=== PATIENT | male | born 1940 | race Caucasian/White ===

== ENCOUNTER 2017-10-02 08:37 | Day surgery (SDC) | payer MEDICARE ==
[2017-10-01 09:30] VITALS: BMI 29.0
[~2017-10-02 08:37] MED LIST: ALPRAZolam 0.25 MG TAB PO PRN; ALPRAZolam 0.5 MG TAB PO PRN; ASPIRIN 325 MG TAB PO STA; NITROGLYCERIN SL TABS 0.4 MG TAB SUBLINGUAL PRN; SODIUM CHLORIDE 0.9% 1,000 ML in EMPTY BAG 1 BAG IV ONE
[2017-10-02 09:52] LABS: Glucose,Whole Blood 140 mg/dL (75-99)
[2017-10-02 09:54] LABS: Basophils % (A) 0 %; Eosinophils # (A) 0.7 k/uL (0-0.7); Eosinophils % (A) 8 %; HCT 42.5 % (39.0-53.0); HGB 14.6 gm/dL (13.0-17.5); Lymphocytes % (A) 22 %; MCH 29.8 pg (25.0-35.0); MCHC 34.4 g/dL (31.0-37.0); MCV 86.8 fL (80.0-100.0); Mean Platelet Volume 7.9; Monocytes # (A) 0.6 k/uL (0-1.0); Monocytes % (A) 7 %; Neutrophils # (A) 5.4 k/uL (1.3-7.7); Neutrophils % (A) 60 %; Platelet Count 246 k/uL (150-450); RBC 4.89 m/uL (4.30-5.90); RDW 13.9 % (11.5-15.5); WBC 8.9 k/uL (3.8-10.6)
[2017-10-02 10:03] LABS: Calcium 9.4 mg/dL (8.4-10.2); Potassium 4.7 mmol/L (3.5-5.1)
[2017-10-02] MEDS: MIDAZOLAM 2 MG/2 ML VIAL IV ONE ×2 (10:21→10:30)
[2017-10-02] MEDS: fentaNYL (PF) 50 MCG/ML 2 ML AMP IV ONE ×2 (10:21→12:53)
[2017-10-02] MEDS ORDERED: LIDOCAINE 2% INJ 20 MG/ML SQ ONE ×2 (10:26→11:26)
--- NOTE | 2017-10-02 11:25 | CC ---
CARDIAC CATHETERIZATION REPORT Mr. Almanzar is a 77-year-old gentleman who was seen in the office for preop evaluation. Patient is status post coronary artery bypass surgery with the RENTERIA graft to the LAD. Patient had a lateral wall ischemia. In view of the moderate to large area of lateral wall ischemia, in view of that, the patient was recommended to have a cardiac catheterization for definitive diagnosis. PROCEDURE: The right groin was prepped and draped in the usual manner and the skin was infiltrated with 2% Xylocaine. Right femoral artery was entered using Seldinger technique. A #6- Wallisian sheath was placed in. Selective coronary angiography was then performed in multiple projections and the RENTERIA graft to the LAD was injected. Patient tolerated the procedure well. HEMODYNAMICS: Left ventricular end-diastolic pressure is 14 to 16 mmHg prior to angiography. No gradient was noted across the aortic valve. SELECTIVE CORONARY ANGIOGRAPHY: Left main coronary artery is normally patent. LAD is occluded after the origin of the diagonal branch. The ostium of the diagonal branch is about 30%-40% stenosis. Circumflex coronary artery is a good caliber blood vessel and there is a mild ostial stenosis noted. The intermediate branch which is a good caliber blood vessel has a 99% stenosis through the calcified vessel. The right coronary artery is also calcified and has a 99% stenosis in the mid RCA. RENTERIA graft to the LAD is patent. FINAL IMPRESSION: 1. Left anterior descending artery is 100% occlusion that is a 30%-40% stenosis. Ostial stenosis of the diagonal branch. The intermediate branch has a 99% stenosis. 2. Right coronary artery has a 99% stenosis. Circumflex coronary artery has mild ostial stenosis. RECOMMENDATIONS: Films were reviewed with Dr. Jordan. Will proceed with a stent to the RCA and intermediate branch. MMODL / IJN: [id number] /
[2017-10-02] MEDS ORDERED: BIVALIRUDIN BOLUS 250 MG/50 ML IV ONE (11:33)
[2017-10-02] MEDS ORDERED: BIVALIRUDIN 250 MG in SODIUM CHLORIDE 0.9% 40 ML IV ONE ×2 (11:34→12:07)
[2017-10-02] MEDS ORDERED: IOPAMIDOL-370 125ML BTL INJ ONE (11:37)
[2017-10-02] MEDS ORDERED: MIDAZOLAM 2 MG/2 ML VIAL IV ONE (11:37)
[2017-10-02] MEDS ORDERED: IOPAMIDOL-370 100ML BTL INJ ONE (12:42)
[2017-10-02] MEDS ORDERED: TICAGRELOR 90 MG TAB PO ONE (12:42)
[2017-10-02] MEDS ORDERED: guaiFENesin 600 MG TABLET.ER PO PRN (12:49)
[2017-10-02] MEDS ORDERED: ATROPINE SULFATE 0.1 MG/ML 10ML SYRINGE IV PRN (12:50)
[2017-10-02] MEDS ORDERED: NITROGLYCERIN SL TABS 0.4 MG TAB SUBLINGUAL PRN (12:50)
[2017-10-02] MEDS ORDERED: ZOLPIDEM 5 MG TAB PO PRN (12:50)
[2017-10-02] MEDS ORDERED: RX INFO: IV CONTRAST WAS GIVEN 1 EACH MISC MISCELLANE PRN (12:50)
[2017-10-02] MEDS ORDERED: MAG HYDROX/AL HYDROX/SIMETH 30 ML CUP PO PRN (12:50)
[2017-10-02] MEDS ORDERED: SODIUM CHLORIDE 0.9% 1,000 ML IV SCH (13:00)
[2017-10-02 17:05] LABS: Glucose,Whole Blood 100 mg/dL (75-99)
[2017-10-02] MEDS: INSULIN ASPART 100 UNIT/ML 1 ML 10 ML VIAL SQ SCH ×2 (17:28→21:42)
[2017-10-02] MEDS ORDERED: ATORVASTATIN 40 MG TAB PO SCH (21:00)
[2017-10-02] MEDS ORDERED: NON-FORMULARY DRUG (Glucosamine Sulfate 500 MG) PO SCH (21:00)
[2017-10-02] MEDS: INSULIN DETEMIR 100 UNIT/ML 10 ML VIAL SQ SCH (21:42)
[2017-10-02] MEDS: TICAGRELOR 90 MG TAB PO SCH (21:47)
[2017-10-02] MEDS: LISINOPRIL 20 MG TAB PO SCH (21:47)
[2017-10-02] MEDS: METOPROLOL TARTRATE 50 MG TAB PO SCH (21:48)
[2017-10-02] MEDS: FAMOTIDINE 20 MG TAB PO SCH (21:48)
[2017-10-03 01:01] VITALS: RESP 18
[2017-10-03 02:07] LABS: Hemoglobin A1C 6.7 % (4.0-6.0)
[2017-10-03 06:26] LABS: Glucose,Whole Blood 110 mg/dL (75-99)
[2017-10-03 06:52] LABS: Basophils % (A) 0 %; Eosinophils # (A) 1.1 k/uL (0-0.7); Eosinophils % (A) 13 %; HCT 38.2 % (39.0-53.0); HGB 12.7 gm/dL (13.0-17.5); Lymphocytes % (A) 24 %; MCH 29.1 pg (25.0-35.0); MCHC 33.2 g/dL (31.0-37.0); MCV 87.5 fL (80.0-100.0); Mean Platelet Volume 7.6; Monocytes # (A) 0.7 k/uL (0-1.0); Monocytes % (A) 9 %; Neutrophils # (A) 4.4 k/uL (1.3-7.7); Neutrophils % (A) 51 %; Platelet Count 209 k/uL (150-450); RBC 4.36 m/uL (4.30-5.90); RDW 13.9 % (11.5-15.5); WBC 8.5 k/uL (3.8-10.6)
[2017-10-03 07:09] LABS: Calcium 9.1 mg/dL (8.4-10.2); Potassium 4.2 mmol/L (3.5-5.1)
[2017-10-03 08:55] VITALS: PULSE 55
[2017-10-03] MEDS ORDERED: CHLORTHALIDONE 25 MG TAB PO SCH (09:00)
[2017-10-03] MEDS ORDERED: FERROUS SULFATE 325 MG TAB PO SCH (09:00)
[2017-10-03] MEDS ORDERED: ASPIRIN 81 MG PO SCH (09:00)
[2017-10-03] MEDS ORDERED: amLODIPine 5 MG TAB PO SCH (09:00)
[2017-10-03] MEDS: INSULIN ASPART 100 UNIT/ML 1 ML 10 ML VIAL SQ SCH ×2 (09:07→12:15)
[2017-10-03] MEDS: INSULIN DETEMIR 100 UNIT/ML 10 ML VIAL SQ SCH (09:07)
[2017-10-03] MEDS: TICAGRELOR 90 MG TAB PO SCH (09:08)
[2017-10-03] MEDS: LISINOPRIL 20 MG TAB PO SCH (09:08)
[2017-10-03] MEDS: METOPROLOL TARTRATE 50 MG TAB PO SCH (09:09)
[2017-10-03] MEDS: FAMOTIDINE 20 MG TAB PO SCH (09:09)
[2017-10-03 11:02] LABS: Glucose,Whole Blood 225 mg/dL (75-99)
[2017-10-03 11:25] LABS: Glucose,Whole Blood 199 mg/dL (75-99)
[2017-10-03 11:58] VITALS: BP 136/68; TEMP 99.3
[2017-10-03] MEDS ORDERED: CHOLECALCIFEROL 1,000 UNIT TAB PO SCH (12:00)
[2017-10-03] MEDS ORDERED: EZETIMIBE 10 MG TAB PO SCH (12:00)
--- NOTE | 2017-10-03 12:49 | DS ---
DISCHARGE SUMMARY This patient underwent cardiac catheterization yesterday. Patient was found to have 99% stenosis of the right coronary artery and 90% stenosis of the intermediate branch. Patient's blood vessels were calcified. Patient underwent orbital atherectomy and stent placement in the right coronary artery. The right groin is normal. He is feeling well. We have increased the dose of Lipitor to 80 mg daily and Zetia 10 mg daily is added. Patient will be brought back for the stent to the ramus intermediate branch in couple of weeks and we will continue the patient on Brilinta and baby aspirin. MMODL / IJN: [id number] /
[2017-10-03] MEDS ORDERED: ATORVASTATIN 80 MG TAB PO SCH (21:00)
--- NOTE | 2017-11-21 10:40 | PTCA ---
PERCUTANEOUSTRANS CORORONARY ANGIOGRAPHY DATE OF SERVICE: 10/02/2017 PERFORMING PHYSICIAN: Rony Jordan MD, Mental Measurements Teacher. PROCEDURE PERFORMED: Successful stenting of the mid RCA using 4.0 x 28 mm Xience CANDELARIO with good angiographic results. INDICATION: This is a pleasant 77-year-old gentleman who sees Dr. Jessica Nails in the office as an outpatient who was experiencing chest discomfort and underwent a heart catheterization and that revealed critical disease involving the mid RCA with severe disease involving the ramus intermedius. APPROACH: Right common femoral artery. COMPLICATION: None. LEVEL OF SEDATION: Moderate. PROCEDURE DESCRIPTION: After obtaining an informed consent after diagnostic heart catheterization was performed by Dr. Nails and after reviewing the angiogram, we decided to pursue with intervention on the RCA. Anticoagulation was initiated using Angiomax. I did engage the RCA using a [employer] guiding catheter. A whisper wire was used to wire the right coronary artery. After that, I did do balloon angioplasty on the RCA using 3.5 mm balloon and after that I deployed 4.0 x 28 mm Xience CANDELARIO where the stent was positioned under fluoroscopy guidance and deployed under its nominal pressure. The following angiogram showed good angiographic results and the procedure was completed without any complication. POSTPROCEDURE MANAGEMENT: 1. Dual anti-platelet therapy. 2. Risk factor modifications. 3. Follow up with the patient. MMODL / IJN: [id number] /
--- NOTE | 2017-11-21 13:14 | CDI ---
Date: 11/21/17 CDS/Technical Sourcing Recruiter Name: Tari Hernandez Phone: If any questions, call Kira Archer [employer] at [phone] Patient Name: Jayant Almanzar Admit Date: 10/04/17 Discharge Date: 10/04/17 ATTENTION: The [facility] Coding Staff appreciate your assistance in clarifying documentation. Please respond to the clarification below the line at the bottom and electronically sign. The [facility] Coding staff will review the response and follow-up if needed. Please note: Queries are made part of the Legal Health Record. If you have any questions, please contact the [employer]. Dear Dr. Jordan, Please provide clarification as to the procedure performed. Discharge summary and Cardiovascular lab log both state atherectomy and stent placement was performed. There is no mention of the atherectomy procedure on the PTCA report. Thank you for your kind consideration. There was no athrectomy preformed MTDD
== END 2017-10-03 12:59 | disposition home or self-care (01) ==
LOC: CATHCVL 08:37 → 6SEL 12:45 → CATHCVL 10-03 12:59
PROVIDERS: ATTEND Internal Medicine Cardiovascular Disease
DX: I25.10 Atherosclerotic heart disease of native coronary artery without angina pectoris (principal); I25.84 Coronary atherosclerosis due to calcified coronary lesion; I25.82 Chronic total occlusion of coronary artery; Z95.1 Presence of aortocoronary bypass graft; Z79.899 Other long term (current) drug therapy
CPT/HCPCS: 93459; 80048 ×2; 85025 ×2; 83036; C9600; C1769 ×5; C1725; C1887 ×2; C1894; C1874; C1714; C1760; J2001; J2250; J3010; J0583; Q9967 ×2; 93458

== ENCOUNTER → 2017-10-20 | Outpatient (CLI) | payer MEDICARE ==
[2017-10-20 11:55] LABS: HCT 41.6 % (39.0-53.0); HGB 13.5 gm/dL (13.0-17.5); MCH 28.5 pg (25.0-35.0); MCHC 32.4 g/dL (31.0-37.0); MCV 88.2 fL (80.0-100.0); Mean Platelet Volume 8.3; Platelet Count 211 k/uL (150-450); RBC 4.72 m/uL (4.30-5.90); RDW 14.5 % (11.5-15.5); WBC 9.9 k/uL (3.8-10.6)
[2017-10-20 12:06] LABS: Potassium 5.1 mmol/L (3.5-5.1)
== END ==
LOC: LABPAT 11:04
PROVIDERS: ATTEND Internal Medicine Interventional Cardiology
DX: Z01.812 Encounter for preprocedural laboratory examination (principal); I25.10 Atherosclerotic heart disease of native coronary artery without angina pectoris
CPT/HCPCS: 36415; 80051; 82565; 84520; 85027

== ENCOUNTER 2017-10-29 06:16 | Day surgery (SDC) | payer MEDICARE ==
[~2017-10-29 06:16] MED LIST changes: -ALPRAZolam 0.5 MG TAB PO PRN; +ASPIRIN 325 MG TAB PO ONE; -ASPIRIN 325 MG TAB PO STA
[2017-10-29 07:04] LABS: Glucose,Whole Blood 85 mg/dL (75-99)
[2017-10-29] MEDS: MIDAZOLAM 2 MG/2 ML VIAL IV ONE ×2 (08:14→08:26)
[2017-10-29] MEDS ORDERED: LIDOCAINE 2% INJ 20 MG/ML SQ ONE (08:19)
[2017-10-29] MEDS ORDERED: BIVALIRUDIN BOLUS 250 MG/50 ML IV ONE (08:24)
[2017-10-29] MEDS ORDERED: BIVALIRUDIN 250 MG in SODIUM CHLORIDE 0.9% 50 ML IV ONE ×2 (08:25→08:57)
[2017-10-29] MEDS: NITROGLYCERIN 1000MCG/10ML SYRINGE INTRACORON ONE ×2 (08:57→09:03)
[2017-10-29] MEDS ORDERED: TICAGRELOR 90 MG TAB PO ONE (09:08)
[2017-10-29] MEDS ORDERED: IOPAMIDOL-370 125ML BTL INJ ONE (09:09)
[2017-10-29] MEDS ORDERED: guaiFENesin 600 MG TABLET.ER PO PRN (09:16)
[2017-10-29] MEDS ORDERED: NITROGLYCERIN SL TABS 0.4 MG TAB SUBLINGUAL PRN ×2 (09:16→09:19)
[2017-10-29] MEDS ORDERED: ZOLPIDEM 5 MG TAB PO PRN (09:19)
[2017-10-29] MEDS ORDERED: ATROPINE SULFATE 0.1 MG/ML 10ML SYRINGE IV PRN (09:19)
[2017-10-29] MEDS ORDERED: RX INFO: IV CONTRAST WAS GIVEN 1 EACH MISC MISCELLANE PRN (09:19)
[2017-10-29] MEDS ORDERED: MAG HYDROX/AL HYDROX/SIMETH 30 ML CUP PO PRN (09:19)
[2017-10-29] MEDS ORDERED: SODIUM CHLORIDE 0.9% 1,000 ML IV SCH (09:30)
[2017-10-29 10:01] LABS: Glucose,Whole Blood 76 mg/dL (75-99)
--- NOTE | 2017-10-29 11:51 | PTCA ---
PERCUTANEOUSTRANS CORORONARY ANGIOGRAPHY DATE OF SERVICE: 10/29/2017 PERFORMING PHYSICIAN: Rony Jordan MD, elevator technician. PROCEDURE PERFORMED: 1. Successful stenting of the proximal ramus intermedius using 2.75 x 15 mm Xience CANDELARIO with good angiographic results. INDICATION: This is a pleasant 77-year-old gentleman who sees Dr. Jessica Nails in the office as an outpatient who was experiencing chest discomfort and underwent recently heart catheterization and stenting of the RCA and was found to have critical disease involving the proximal ramus intermedius. He was brought today to undergo an intervention on the ramus intermedius. APPROACH: Right common femoral artery. COMPLICATION: None. LEVEL OF SEDATION: Moderate with sedation length of 56 minutes. PROCEDURE DESCRIPTION: After obtaining an informed consent, the patient was brought to cardiac laboratory sampler. The right common femoral artery was cannulated using micropuncture technique. Then I placed a 6-Nepalese sheath 11 cm in the right common femoral artery. At that point, anticoagulation was initiated using Angiomax. Subsequently I did engage the left main using an XP35 guide. I attempted crossing the lesion in the proximal ramus intermedius using a whisper wire, but the wire will not cross, but I was able to cross it using a ChoICE PT wire with a backup support 2.0 x 12 mm balloon. I tried to advance the 2.0 x 12 balloon and the balloon will not cross the lesion. I did wire the ramus using a elli wire with a run-through wire. With the run- through and the ChoICE PT I was able to balloon angioplasty of the ramus intermedius using initially 2.0 x 12 mm and subsequently 2 5 x 12 mm NC balloon. Then I deployed a 2.75 x 15 mm Xience CANDELARIO where the stent was positioned under fluoroscopy guidance and deployed under 12 atmospheres for 20 seconds. The following angiogram showed good angiographic results with reduction of stenosis from 99% to 0%. The procedure was completed without any complication. POSTPROCEDURE MANAGEMENT: 1. Dual anti-platelet therapy. 2. Risk factors modifications. 3. Follow up with the patient. MMODL / IJN: [id number] /
[2017-10-29 12:00] LABS: Glucose,Whole Blood 88 mg/dL (75-99)
[2017-10-29 16:45] LABS: Glucose,Whole Blood 137 mg/dL (75-99)
[2017-10-29] MEDS ORDERED: ENALAPRIL MALEATE 40 MG PO SCH (21:00)
[2017-10-29] MEDS ORDERED: [UNRECOGNIZED DRUG - OTHER] PO SCH (21:00)
[2017-10-29] MEDS ORDERED: NON-FORMULARY DRUG (Glucosamine Sulfate 500 MG) PO SCH (21:00)
[2017-10-29] MEDS ORDERED: ATORVASTATIN 80 MG TAB PO SCH (21:00)
[2017-10-29 21:07] LABS: Glucose,Whole Blood 195 mg/dL (75-99)
[2017-10-29] MEDS: INSULIN DETEMIR 100 UNIT/ML 10 ML VIAL SQ SCH (21:13)
[2017-10-29] MEDS: FAMOTIDINE 20 MG TAB PO SCH (21:14)
[2017-10-29] MEDS: TICAGRELOR 90 MG TAB PO SCH (21:14)
[2017-10-29] MEDS: METOPROLOL TARTRATE 50 MG TAB PO SCH (21:14)
[2017-10-30 01:38] VITALS: RESP 16
[2017-10-30 06:09] LABS: Basophils % (A) 0 %; Eosinophils # (A) 0.6 k/uL (0-0.7); Eosinophils % (A) 8 %; HCT 44.2 % (39.0-53.0); HGB 14.8 gm/dL (13.0-17.5); Lymphocytes # (A) 1.9 k/uL (1.0-4.8); Lymphocytes % (A) 23 %; MCH 29.7 pg (25.0-35.0); MCHC 33.5 g/dL (31.0-37.0); MCV 88.4 fL (80.0-100.0); Mean Platelet Volume 7.1; Monocytes # (A) 0.7 k/uL (0-1.0); Monocytes % (A) 9 %; Neutrophils # (A) 4.9 k/uL (1.3-7.7); Neutrophils % (A) 58 %; Platelet Count 194 k/uL (150-450); RBC 4.99 m/uL (4.30-5.90); RDW 15.1 % (11.5-15.5); WBC 8.3 k/uL (3.8-10.6)
[2017-10-30 06:21] LABS: Calcium 9.7 mg/dL (8.4-10.2); Potassium 4.4 mmol/L (3.5-5.1)
[2017-10-30 06:43] LABS: Glucose,Whole Blood 135 mg/dL (75-99)
[2017-10-30] MEDS ORDERED: amLODIPine 5 MG TAB PO SCH (09:00)
[2017-10-30] MEDS ORDERED: CHLORTHALIDONE 25 MG TAB PO SCH (09:00)
[2017-10-30] MEDS ORDERED: EZETIMIBE 10 MG TAB PO SCH (09:00)
[2017-10-30] MEDS ORDERED: ASPIRIN 81 MG PO SCH (09:00)
[2017-10-30] MEDS: INSULIN DETEMIR 100 UNIT/ML 10 ML VIAL SQ SCH (09:33)
[2017-10-30] MEDS: FAMOTIDINE 20 MG TAB PO SCH (09:33)
[2017-10-30] MEDS: METOPROLOL TARTRATE 50 MG TAB PO SCH (09:33)
[2017-10-30] MEDS: TICAGRELOR 90 MG TAB PO SCH (09:33)
[2017-10-30 10:27] VITALS: BP 122/66; PULSE 57; TEMP 96.9
[2017-10-30 10:36] VITALS: BMI 28.6
[2017-10-30] MEDS ORDERED: FERROUS SULFATE 325 MG TAB PO SCH (12:00)
[2017-10-30] MEDS ORDERED: CHOLECALCIFEROL 1,000 UNIT TAB PO SCH (12:00)
--- NOTE | 2017-11-02 21:50 | DS ---
DISCHARGE SUMMARY DATE OF ADMISSION: October 29, 2017. DATE OF DISCHARGE: October 30, 2017 BRIEF HISTORY: Mr. Jayant Seals is a pleasant 77-year-old gentleman who sees Dr. Jessica Nails in the office as an as an outpatient. He was admitted to the hospital recently with chest discomfort and underwent a heart catheterization and was found to have critical disease involving the RCA and critical disease involving the proximal ramus intermedius coronary artery. The patient underwent successful stenting of the RCA at that point, and he was brought today to undergo stenting of the ramus intermedius. I did perform successful stenting of the ramus intermedius using 2.75 x 15 mm Xience drug-eluting stent with good angiographic results and without any complication. The procedure was performed from the right common femoral approach. The right groin is soft and nontender and without any bruises. The patient is going to be discharged home on dual anti-platelet therapy and he will follow up with Dr. Nails in the office as an outpatient. MMODL / IJN: [id number] /
== END 2017-10-30 11:55 | disposition home or self-care (01) ==
LOC: CATHCVL 06:16 → 6SEL 09:13 → CATHCVL 10-30 11:55
PROVIDERS: ATTEND Internal Medicine Interventional Cardiology
DX: I25.10 Atherosclerotic heart disease of native coronary artery without angina pectoris (principal); R00.1 Bradycardia, unspecified; Z95.5 Presence of coronary angioplasty implant and graft; Z95.1 Presence of aortocoronary bypass graft; I21.9 Acute myocardial infarction, unspecified; E11.9 Type 2 diabetes mellitus without complications; I10 Essential (primary) hypertension; E78.2 Mixed hyperlipidemia; Z82.49 Family history of ischemic heart disease and other diseases of the circulatory system; Z79.82 Long term (current) use of aspirin; Z79.4 Long term (current) use of insulin; Z79.899 Other long term (current) drug therapy; Z88.5 Allergy status to narcotic agent
CPT/HCPCS: 80048; 85025; C9600; C1769 ×4; C1887 ×2; C1725 ×4; C1874; C1894; C1760; J2001; J2250; J0583; Q9967

== ENCOUNTER 2018-02-09 12:43 | Emergency (ER) | payer MEDICARE ==
[2018-02-09 12:59] VITALS: RESP 18
[2018-02-09] MEDS ORDERED: CEPHALEXIN 500 MG CAP PO STA (14:04)
--- NOTE | 2018-02-09 14:06 | ED ---
General Adult HPI - General Chief complaint: Urogenital Stated complaint: Urogenital Time Seen by Provider: 02/09/18 12:55 Source: patient, RN notes reviewed Mode of arrival: ambulatory Limitations: no limitations - History of Present Illness Initial comments: This is a 77-year-old male who presents emergency Department stating he had a penile implant placed in 2005. Patient states on Friday he started having difficulty urinating he noticed that one of the Lao had worked its way into the urethra and it was sticking out from the urethral orifice. Patient states he is having was no urine output because of this however female relates the pain is a little bit of a little dribble will come out. Patient denies any fever chills. Patient denies any back pain. Patient denies any bleeding. Patient states there is some pain when he tries to urinate. - Related Data Home Medications Medication Instructions Recorded Confirmed Chlorthalidone [Hygroton] 25 mg PO DAILY 12/26/15 10/29/17 Enalapril Maleate [Vasotec] 40 mg PO BID 12/26/15 10/29/17 INSULIN LISPRO (humaLOG) [humaLOG] See Protocol SQ Q2H PRN 12/26/15 10/29/17 Insulin Glargine,Hum.rec.anlog 37 unit SQ Q12H 12/26/15 10/29/17 [Lantus Solostar] Metoprolol Tartrate [Lopressor] 50 mg PO BID 12/26/15 10/29/17 amLODIPine BESYLATE [Norvasc] 5 mg PO DAILY 12/26/15 10/29/17 Cholecalciferol [Vitamin D3] 5,000 unit PO DAILY 10/01/17 10/29/17 Ferrous Sulfate [Iron (65 MG 325 mg PO DAILY 10/01/17 10/29/17 Elemental)] Glucosamine Sulfate 500 mg PO BID 10/01/17 10/29/17 Ranitidine HCl 150 mg PO BID 10/01/17 10/29/17 Vanadium 1 tab PO BID 10/01/17 10/29/17 guaiFENesin [Mucinex] 600 mg PO BID PRN 10/01/17 10/29/17 Previous Rx's Medication Instructions Recorded Aspirin 81 mg PO DAILY #30 chew 10/03/17 Atorvastatin [Lipitor] 80 mg PO HS #30 tab 10/03/17 Ezetimibe [Zetia] 10 mg PO DAILY #90 tab 10/03/17 Nitroglycerin Sl Tabs [Nitrostat] 0.4 mg SUBLINGUAL Q5M PRN #25 tab 10/03/17 Ticagrelor [Brilinta] 90 mg PO BID #60 tab 10/03/17 Allergies Allergy/AdvReac Type Severity Reaction Status Date / Time morphine Allergy Severe Vomiting Verified 02/09/18 12:58 Review of Systems ROS Statement: Those systems with pertinent positive or pertinent negative responses have been documented in the HPI. ROS Other: All systems not noted in ROS Statement are negative. 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 states no prostate problems, HX gout, awaiting knee replacements. History of Any Multi-Drug Resistant Organisms: None Reported Past Surgical History: Coronary Bypass/CABG, Heart Catheterization, Heart Catheterization With Stent, Joint Replacement, Orthopedic Surgery Additional Past Surgical History / Comment(s): Reverse total R shoulder arthroplasty. JAW SURG(1959'S) 2004 SINGLE CABG. EXC CA IN THROAT; THEN HAD RADIATION. JUAN F KNEE SURG- REATTACHED LIGAMENTS AND TENDONS. juan f cataract. heart cath-10/02/2017 Stent x1 RCA-perclose Past Anesthesia/Blood Transfusion Reactions: Motion Sickness Additional Past Anesthesia/Blood Transfusion Reaction / Comment(s): STATES NEEDS "SMALLER TUBE FOR INTUBATION" Date of Last Stent Placement:: 10/03/17 Past Psychological History: No Psychological Hx Reported Smoking Status: Former smoker Past Alcohol Use History: Occasional Past Drug Use History: None Reported - Past Family History Mother Family Medical History: No Reported History Additional Family Medical History / Comment(s): Mother was healthy and at the age of 90 yrs. Father Family Medical History: Diabetes Mellitus Additional Family Medical History / Comment(s): Father in his mid 80's General Exam - General Exam Comments Initial Comments: GENERAL: Patient is well-developed and well-nourished. Patient is nontoxic and well- hydrated and is in mild distress. ENT: Neck is soft and supple. No significant lymphadenopathy is noted. Oropharynx is clear. Moist mucous membranes. Neck has full range of motion without eliciting any pain. EYES: The sclera were anicteric and conjunctiva were pink and moist. Extraocular movements were intact and pupils were equal round and reactive to light. Eyelids were unremarkable. PULMONARY: Unlabored respirations. Good breath sounds bilaterally. No audible rales rhonchi or wheezing was noted. CARDIOVASCULAR: There is a regular rate and rhythm without any murmurs gallops or rubs. GENITALIA There is a cylinder from the penile implant sticking out from the urethral orifice ABDOMEN: Soft and nontender with normal bowel sounds. No palpable organomegaly was noted. There is no palpable pulsatile mass. SKIN: Skin is clear with no lesions or rashes and otherwise unremarkable. NEUROLOGIC: Patient is alert and oriented x3. Cranial nerves II through XII are grossly intact. Motor and sensory are also intact. Normal speech, volume and content. Symmetrical smile. MUSCULOSKELETAL: Normal extremities with adequate strength and full range of motion. PSYCHIATRIC: Normal psychiatric evaluation. Limitations: no limitations Course Vital Signs 02/09/18 12:55 Temperature 98.7 F Pulse Rate 53 L Respiratory 18 Rate Blood Pressure 128/73 O2 Sat by Pulse 96 Oximetry Medical Decision Making - Medical Decision Making I made 3 attempts at a Gómez catheter was unsuccessful. Dr. Veronica came in and placed a Gómez catheter. - Lab Data Lab Results 02/09/18 Range/Units 14:06 Urine Color Yellow Urine Appearance Turbid (Clear) Urine pH 5.5 (5.0-8.0) Ur Specific [place] 1.015 (1.001-1.035) Urine Protein 1+ H (Negative) Urine Glucose (UA) 2+ H (Negative) Urine Ketones Negative (Negative) Urine Blood Small H (Negative) Urine Nitrite Negative (Negative) Urine Bilirubin Negative (Negative) Urine Urobilinogen <2.0 (<2.0) mg/dL Ur Leukocyte Esterase Large H (Negative) Urine RBC 67 H (0-5) /hpf Urine WBC >182 H (0-5) /hpf Urine WBC Clumps Moderate H (None) /hpf Ur Squamous Epith Cells 2 (0-4) /hpf Urine Bacteria Moderate H (None) /hpf Urine Mucus Moderate H (None) /hpf Disposition Clinical Impression: Urinary retention, UTI (urinary tract infection) Disposition: HOME SELF-CARE Condition: Good Instructions: Urinary Tract Infection in Men (ED), Urinary Retention in Men (ED ) Is patient prescribed a controlled substance at d/c from ED?: No Referrals: Jose Rosario MD [STAFF PHYSICIAN] - 1-2 days Time of Disposition: 16:26
[2018-02-09 14:24] LABS: Appearance,Urine Turbid (Clear); Bacteria,Urine Moderate /hpf; Bilirubin,Urine Negative (Negative); Blood,Urine Small (Negative); Color,Urine Yellow; Glucose,Urine (UA) 2+ (Negative); Ketones,Urine Negative (Negative); Leukocyte Esterase,Urine Large (Negative); Mucus,Urine Moderate /hpf; Nitrite,Urine Negative (Negative); PH, Urine 5.5 (5.0-8.0); Protein,Urine 1+ (Negative); RBC,Urine 67 /hpf (0-5); Specific Gravity,Urine 1.015 (1.001-1.035); Squamous Epithelial Cell,Urine 2 /hpf (0-4); Urobilinogen,Urine <2.0 mg/dL (<2.0); WBC,Urine >182 /hpf (0-5)
[2018-02-09] MEDS ORDERED: LIDOCAINE URO-JET JELLY 2% 5 ML KIT URETHRAL ONE (15:36)
--- NOTE | 2018-02-09 16:50 | P.GSCN ---
History of Present Illness Consult date: 02/09/18 Reason for Consult: Erosion of penile prosthesis Requesting physician: Jayme Givens History of present illness: The patient is a 77-year-old white male who underwent insertion of an inflatable penile [place] [address] Rosario. This is worked well over the years. He was hospitalized at [facility] in August 2017 with a UTI, and he was straight catheterized on multiple occasions. On 02/06/2018, he noted erosion of one of the penile cylinders at the urethral meatus. He presented to the emergency room today due to his inability to void. 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 states no prostate problems, HX gout, awaiting knee replacements. History of Any Multi-Drug Resistant Organisms: None Reported Past Surgical History: Coronary Bypass/CABG, Heart Catheterization, Heart Catheterization With Stent, Joint Replacement, Orthopedic Surgery Additional Past Surgical History / Comment(s): Reverse total R shoulder arthroplasty. JAW SURG(1959'S) 2004 SINGLE CABG. EXC CA IN THROAT; THEN HAD RADIATION. JUAN F KNEE SURG- REATTACHED LIGAMENTS AND TENDONS. juan f cataract. heart cath-10/02/2017 Stent x1 RCA-perclose Past Anesthesia/Blood Transfusion Reactions: Motion Sickness Additional Past Anesthesia/Blood Transfusion Reaction / Comm: STATES NEEDS "SMALLER TUBE FOR INTUBATION" Date of Last Stent Placement:: 10/03/17 Past Psychological History: No Psychological Hx Reported Smoking Status: Former smoker Past Alcohol Use History: Occasional Past Drug Use History: None Reported - Past Family History Mother Family Medical History: No Reported History Additional Family Medical History / Comment(s): Mother was healthy and at the age of 90 yrs. Father Family Medical History: Diabetes Mellitus Additional Family Medical History / Comment(s): Father in his mid 80's Medications and Allergies Home Medications Medication Instructions Recorded Confirmed Type Chlorthalidone [Hygroton] 25 mg PO DAILY 12/26/15 10/29/17 History Enalapril Maleate [Vasotec] 40 mg PO BID 12/26/15 10/29/17 History INSULIN LISPRO (humaLOG) [humaLOG] See Protocol SQ Q2H PRN 12/26/15 10/29/17 History Insulin Glargine,Hum.rec.anlog 37 unit SQ Q12H 12/26/15 10/29/17 History [Lantus Solostar] Metoprolol Tartrate [Lopressor] 50 mg PO BID 12/26/15 10/29/17 History amLODIPine BESYLATE [Norvasc] 5 mg PO DAILY 12/26/15 10/29/17 History Cholecalciferol [Vitamin D3] 5,000 unit PO DAILY 10/01/17 10/29/17 History Ferrous Sulfate [Iron (65 MG 325 mg PO DAILY 10/01/17 10/29/17 History Elemental)] Glucosamine Sulfate 500 mg PO BID 10/01/17 10/29/17 History Ranitidine HCl 150 mg PO BID 10/01/17 10/29/17 History Vanadium 1 tab PO BID 10/01/17 10/29/17 History guaiFENesin [Mucinex] 600 mg PO BID PRN 10/01/17 10/29/17 History Aspirin 81 mg PO DAILY #30 chew 10/03/17 10/29/17 Rx Atorvastatin [Lipitor] 80 mg PO HS #30 tab 10/03/17 10/29/17 Rx Ezetimibe [Zetia] 10 mg PO DAILY #90 tab 10/03/17 10/29/17 Rx Nitroglycerin Sl Tabs [Nitrostat] 0.4 mg SUBLINGUAL Q5M PRN #25 tab 10/03/17 Rx Ticagrelor [Brilinta] 90 mg PO BID #60 tab 10/03/17 10/29/17 Rx Allergies Allergy/AdvReac Type Severity Reaction Status Date / Time morphine Allergy Severe Vomiting Verified 02/09/18 12:58 Surgical - Exam Vital Signs Temp Pulse Resp BP Pulse Ox 98.7 F 53 L 18 128/73 96 02/09/18 12:55 02/09/18 12:55 02/09/18 12:55 02/09/18 12:55 02/09/18 12:55 - General well developed, well nourished, no distress - Respiratory normal respiratory effort - Abdomen Abdomen: soft, non tender, no guarding, no rigid, no rebound - Genitourinary The penis is circumcised. The prosthetic cylinder from the left corporal body has eroded through the urethral meatus. The testes are palpably normal. The pump is palpable within the right hemiscrotum. Minimal scrotal edema is noted. 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 2% lidocaine gel was administered intraurethrally. With some difficulty, I was able to pass a 12-[place] Gómez catheter alongside the prosthetic cylinder. The catheter was advanced into the bladder, with return of clear yellow urine. The patient states that he and his are no longer sexually active. In view of this, he was advised that all prosthetic components will need to be removed. He will be discharged home on Keflex, with the Gómez catheter, and Dr. Rosario will be made aware of his condition. Time with Patient: Greater than 30
[2018-02-09 16:56] VITALS: BP 136/69; PULSE 61; TEMP 99.6
== END 2018-02-09 16:57 | disposition home or self-care (01) ==
LOC: EC 12:43
DX: N39.0 Urinary tract infection, site not specified (principal); I10 Essential (primary) hypertension; I25.10 Atherosclerotic heart disease of native coronary artery without angina pectoris; E10.9 Type 1 diabetes mellitus without complications; K21.9 Gastro-esophageal reflux disease without esophagitis; Z87.891 Personal history of nicotine dependence; Z88.5 Allergy status to narcotic agent; Z79.4 Long term (current) use of insulin; Z79.899 Other long term (current) drug therapy; Z85.819 Personal history of malignant neoplasm of unspecified site of lip, oral cavity, and pharynx; Z98.890 Other specified postprocedural states; Z96.0 Presence of urogenital implants
CPT/HCPCS: 51702; 51798; 81001; 87086; 99284

== ENCOUNTER 2018-02-11 14:03 | Day surgery (SDC) | payer MEDICARE ==
[2018-02-10 11:32] VITALS: BMI 29.1
--- NOTE | 2018-02-11 13:04 | P.GSHP ---
History of Present Illness H&P Date: 02/11/18 Chief Complaint: Urethral erosion of inflatable penile prosthesis The patient first developed difficulty voiding on 02/06/2018 and at that time noted protrusion of the tip of his penile prosthesis at the urethral opening. He developed further problems voiding and was unable to void on 02/09. He came to the ER and Dr Reyna placed a whipple catheter to relieve his urinary retention. He is admitted for removal of the prosthesis. 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 JAW SURG(1959'S) 2004 SINGLE CABG. EXC CA IN THROAT; THEN HAD RADIATION. JUAN F KNEE SURG- REATTACHED LIGAMENTS AND TENDONS. juan f cataract. heart cath-10/02/2017 Stent x1 RCA-perclose Placement of inflatable penile prosthesis 2005. Past Anesthesia/Blood Transfusion Reactions: Motion Sickness Additional Past Anesthesia/Blood Transfusion Reaction / Comment(s): STATES NEEDS "SMALLER TUBE FOR INTUBATION" Date of Last Stent Placement:: 10/03/17 Smoking Status: Former smoker - Past Family History Mother Family Medical History: No Reported History Additional Family Medical History / Comment(s): Mother was healthy and at the age of 90 yrs. Father Family Medical History: Diabetes Mellitus Additional Family Medical History / Comment(s): Father in his mid 80's Medications and Allergies Home Medications Medication Instructions Recorded Confirmed Type Chlorthalidone [Hygroton] 25 mg PO DAILY 12/26/15 02/10/18 History Enalapril Maleate [Vasotec] 40 mg PO BID 12/26/15 02/10/18 History INSULIN LISPRO (humaLOG) [humaLOG] See Protocol SQ Q2H PRN 12/26/15 02/10/18 History Insulin Glargine,Hum.rec.anlog 37 unit SQ Q12H 12/26/15 02/10/18 History [Lantus Solostar] Metoprolol Tartrate [Lopressor] 50 mg PO BID 12/26/15 02/10/18 History amLODIPine BESYLATE [Norvasc] 5 mg PO DAILY 12/26/15 02/10/18 History Cholecalciferol [Vitamin D3] 5,000 unit PO DAILY 10/01/17 02/10/18 History Ferrous Sulfate [Iron (65 MG 325 mg PO DAILY 10/01/17 02/10/18 History Elemental)] Glucosamine Sulfate 500 mg PO BID 10/01/17 02/10/18 History Ranitidine HCl 150 mg PO BID 10/01/17 02/10/18 History Vanadium 1 tab PO BID 10/01/17 02/10/18 History guaiFENesin [Mucinex] 600 mg PO BID PRN 10/01/17 02/10/18 History Aspirin 81 mg PO DAILY #30 chew 10/03/17 02/10/18 Rx Atorvastatin [Lipitor] 80 mg PO HS #30 tab 10/03/17 02/10/18 Rx Ezetimibe [Zetia] 10 mg PO DAILY #90 tab 10/03/17 02/10/18 Rx Nitroglycerin Sl Tabs [Nitrostat] 0.4 mg SUBLINGUAL Q5M PRN #25 tab 10/03/1709/24 Rx Ticagrelor [Brilinta] 90 mg PO BID #60 tab 10/03/17 02/10/18 Rx Allergies Allergy/AdvReac Type Severity Reaction Status Date / Time morphine Allergy Severe Vomiting Verified 02/10/18 11:27 Surgical - Exam - General well developed, well nourished, no distress - Respiratory normal respiratory effort - Abdomen Abdomen: soft - Genitourinary testicles present, other (There is a Whipple catheter present. The right and left cylinders of a penile prosthesis are palpable as is the pump. Some discharge along the Whipple catheter.) Assessment and Plan Assessment: The inflatable penile prosthesis will be removed as it has been colonized from the erosion into the urethra. The patient is not interested in another prosthesis in the future. (1) Erosion of implanted genitourinary material to surrounding tissue Status: Acute Code(s): T83.719A - EROSION OF OTHER PROSTH MATERIALS TO SURRND ORG/TISS, INIT SNOMED Code(s): 52297138
[~2018-02-11 14:03] MED LIST changes: -ALPRAZolam 0.25 MG TAB PO PRN; -ASPIRIN 325 MG TAB PO ONE; +DEXAMETHASONE SOD PHOSPHATE 10 MG/ML 1 ML VIAL IV ONE; +HYDROmorphone 0.5 MG/0.5 ML SYRINGE IVP PRN; +LACTATED RINGERS 1,000 ML IV SCH; +LIDOCAINE 1% 20 ML VIAL (10MG/ML) FOR IV START INTRADERMA PRN; +MIDAZOLAM 2 MG/2 ML VIAL IV PRN; -NITROGLYCERIN SL TABS 0.4 MG TAB SUBLINGUAL PRN; +ONDANSETRON 4 MG/2 ML VIAL IVP ONE; +Pre Op ABX Message 1 EACH MISC MISCELLANE ONE; +SCOPOLAMINE 1.5MG/72HR PATCH TRANSDERM ONE; -SODIUM CHLORIDE 0.9% 1,000 ML in EMPTY BAG 1 BAG IV ONE
[2018-02-11 15:14] LABS: Glucose,Whole Blood 204 mg/dL (75-99)
[2018-02-11] MEDS ORDERED: LIDOCAINE 1% INJ 10MG/ML (20 ML MDV) ONE (15:44)
[2018-02-11] MEDS ORDERED: SUCCINYLCHOLINE CHLORIDE 100 MG/5 ML SYR IV ONE (15:44)
[2018-02-11] MEDS ORDERED: GLYCOPYRROLATE 0.2 MG/ML 2 ML VIAL ONE (15:44)
[2018-02-11] MEDS ORDERED: PROPOFOL 10 MG/ML 20 ML VIAL IV ONE (15:44)
[2018-02-11] MEDS ORDERED: fentaNYL (PF) 50 MCG/ML 2 ML AMP ONE (15:44)
[2018-02-11] MEDS ORDERED: ROCURONIUM BROMIDE 10 MG/ML 10 ML VIAL IV ONE (15:44)
[2018-02-11] MEDS ORDERED: NEOSTIGMINE 1 MG/ML 10 ML VIAL ONE (15:44)
[2018-02-11] MEDS ORDERED: ceFAZolin 1,000 MG/50 ML BAG (PMX) IVPB ONE (16:00)
[2018-02-11 17:36] VITALS: RESP 16; TEMP 98
--- NOTE | 2018-02-11 17:41 | P.OP ---
Date of Procedure: 02/11/18 Preoperative Diagnosis: Erosion of inflatable penile prosthesis into urethra Postoperative Diagnosis: Erosion of inflatable penile prosthesis into urethra Procedure(s) Performed: Removal of inflatable penile prosthesis (except reservoir) Anesthesia: JOSE Surgeon: Jose Rosario Estimated Blood Loss (ml): 5 Pathology: none sent Condition: stable Disposition: PACU Indications for Procedure: The patient is a 77-year-old male with a history of erectile dysfunction secondary to long-standing diabetes mellitus who had been treated with placement of an inflatable penile prosthesis over 10 years ago. The prosthesis appeared to spontaneously erode into the distal urethra on 02/06. Removal of the prosthesis as planned. Description of Procedure: The patient was taken gapping suite where adequate general anesthesia via orotracheal intubation was instituted. The patient was placed in the supine position. The suprapubic area and scrotum was then shaved. The genitalia and lower abdomen was then prepped with Betadine solution and draped in a sterile fashion. The patient's Gómez catheter was removed. The tip of the penile prosthesis protruded out through the urethral opening. The penile prosthesis had originally been placed through a penoscrotal incision and it was elected to remove the prosthesis through the same incision. A midline incision was made through the scar. Bleeding was minimal and was controlled using electrocautery. Using electrocautery the incision was carried down to the tubing leading to the pump. Using electrocautery the are around the pump was freed up and the pump was everted. A culture was obtained from the fluid adjacent to the pump. In a similar fashion the tubing going to the right corporal body was traced down to the tunica albuginea. The tunica albuginea was incised using electrocautery just enough to allow clamp to grasp the prosthesis and pull it up through the incision. It appeared that the right inflatable cylinder had eroded through the urethra as the protruding portion of the cylinder was withdrawn back through the urethra and out. The rear-tip vocal music teacher was removed. An identical procedure was performed on the left side by tracing the tubing back to its junction with the tunica albuginea. The tunica albuginea was incised using electrocautery and the left inflatable cylinder was removed. The rear-tip vocal music teacher was also removed. The tubing leading to the reservoir was then traced up to the region of the pubis. Attempts were made to enlarge the area around the tubing to allow withdrawal of the reservoir but this proved to be very difficult due to lack of good exposure in this region. In doing this there was too much traction on the tubing which detached from the reservoir. At this point I considered a suprapubic incision to remove the reservoir but according to the patient's he had been coughing for the last month and I was concerned that the patient could develop an incisional hernia. In view of this the reservoir was left in place. All incisions were then irrigated with Betadine solution. The deep tissue the scrotum was closed using running 4-0 chromic. The skin was closed using running 3 chromic placed in a subcuticular fashion. A 14-[place] coud catheter was inserted and left to gravity drainage. Sterile dressing was then applied The patient tolerated the procedure well and left the operative room awake and in satisfactory addition blood loss was less than 5 mL. Final sponge and needle counts were reported as correct. The patient will be discharged with the catheter in place and I anticipate removal of the catheter on 02/17. The patient will be seen back in follow-up in one week.
[2018-02-11 17:49] LABS: Glucose,Whole Blood 222 mg/dL (75-99)
[2018-02-11 18:56] VITALS: BP 159/75; PULSE 59
== END 2018-02-11 18:54 | disposition home or self-care (01) ==
LOC: OR 14:03
PROVIDERS: ATTEND Urology
DX: T83.490A Other mechanical complication of implanted penile prosthesis, initial encounter (principal); I25.10 Atherosclerotic heart disease of native coronary artery without angina pectoris; I10 Essential (primary) hypertension; Z87.891 Personal history of nicotine dependence; E78.5 Hyperlipidemia, unspecified; E11.9 Type 2 diabetes mellitus without complications; K21.9 Gastro-esophageal reflux disease without esophagitis; M10.9 Gout, unspecified; Z95.1 Presence of aortocoronary bypass graft; Z95.5 Presence of coronary angioplasty implant and graft; Z85.89 Personal history of malignant neoplasm of other organs and systems; Z92.3 Personal history of irradiation; Z79.82 Long term (current) use of aspirin; Z79.4 Long term (current) use of insulin; Z79.899 Other long term (current) drug therapy; Z88.5 Allergy status to narcotic agent
CPT/HCPCS: 87070; 87205; 87075; 54406; J1100; J2710; J2405; J2001; J3010; J0690; J0330; J2704

== ENCOUNTER → 2018-06-29 | Outpatient (CLI) | payer MEDICARE ==
[2018-06-29 19:02] LABS: Albumin 4.4 g/dL (3.80-4.90); Albumin/Globulin Ratio 2.1 (1.20-2.10); Anion Gap 12.8 mmol/L (4.00-12.00); Calcium 9.2 mg/dL (8.7-10.3); Carbon Dioxide 30.2 mmol/L (21.6-31.8); Globulin 2.1 g/dL (1.6-3.3); LDL Cholesterol,Calculated 37.4 mg/dL (0.0-131.0); Potassium 3.8 mmol/L (3.5-5.5); Total Bilirubin 1.9 mg/dL (0.2-1.2); Total Protein 6.5 g/dL (6.2-8.2); VLDL Calculation 20.6 mg/dL (5.00-40.00)
[2018-06-29 20:12] LABS: Hemoglobin A1C 6.7 % (4.0-6.0)
== END | disposition home or self-care (01) ==
LOC: LABWHC1 12:25
PROVIDERS: ATTEND Internal Medicine Endocrinology, Diabetes & Metabolism
DX: E11.65 Type 2 diabetes mellitus with hyperglycemia (principal)
CPT/HCPCS: 36415; 80053; 80061; 82043; 82570; 82607; 83036; 84443

== ENCOUNTER → 2020-04-17 | Outpatient (CLI) | payer MEDICARE ==
[2020-04-17 19:56] LABS: African American GFR (CKD) 59.3 (60.0-200.0); Albumin 4.6 g/dL (3.80-4.90); Albumin/Globulin Ratio 1.77 (1.60-3.17); Anion Gap 11.7 mmol/L (4.00-12.00); BUN/Creat Ratio 19.23 Ratio (12.00-20.00); Calcium 9.6 mg/dL (8.7-10.3); Carbon Dioxide 26.3 mmol/L (21.6-31.8); Chol/HDL Ratio 2.98; Globulin 2.6 g/dL (1.6-3.3); LDL Cholesterol,Calculated 61.8 mg/dL (0.0-131.0); Non-African American GFR(CKD) 51.2 (60.0-200.0); Potassium 4.8 mmol/L (3.5-5.5); Total Bilirubin 0.7 mg/dL (0.2-1.2); Total Protein 7.2 g/dL (6.2-8.2); VLDL Calculation 21.2 mg/dL (5.00-40.00)
[2020-04-17 21:07] LABS: Hemoglobin A1C 6.9 % (4.0-6.0)
== END | disposition home or self-care (01) ==
LOC: LABWHC1 11:24
PROVIDERS: ATTEND Internal Medicine Endocrinology, Diabetes & Metabolism
DX: E11.65 Type 2 diabetes mellitus with hyperglycemia (principal)
CPT/HCPCS: 36415; 80053; 80061; 82043; 82570; 83036; 84443

== ENCOUNTER 2021-05-10 06:07 | Day surgery (SDC) | payer MEDICARE ==
--- NOTE | 2021-05-06 15:27 | P.GSHP ---
History of Present Illness H&P Date: 05/06/21 Chief Complaint: Incomplete bladder emptying The patient is an 80-year-old white male who has previously undergone a transurethral resection of the prostate (TURP) on 2 occasions, in 2009 and 2010. He underwent a left tricep tendon repair on 01/01/2021 and developed postoper ative urinary retention (1800 cc). He was placed in tamsulosin 0.8 mg daily but continues to empty his bladder incompletely. Cystoscopy reveals complete prostatic occlusion at the mid gland to apex region of the prostate. He was offered the options of continuing tamsulosin, adding finasteride, or undergoing a repeat TURP. He has chosen the latter. 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 JAW SURG(S) 2004 SINGLE CABG. EXC CA IN THROAT; THEN HAD RADIATION. JUAN F KNEE SURG- REATTACHED LIGAMENTS AND TENDONS. juan f cataract. heart cath-10/02/2017 Stent x1 RCA-perclose Placement of inflatable penile prosthesis 2005. Past Anesthesia/Blood Transfusion Reactions: Motion Sickness Additional Past Anesthesia/Blood Transfusion Reaction / Comment(s): STATES NEEDS "SMALLER TUBE FOR INTUBATION" Date of Last Stent Placement:: 10/03/17 Past Psychological History: No Psychological Hx Reported Additional Psychological History / Comment(s): Pt resides with his spouse. He is independent. Past Alcohol Use History: Occasional Additional Past Alcohol Use History / Comment(s): 2 CIGARS DAILY, quit in 05/1995. Past Drug Use History: None Reported - Past Family History Mother Family Medical History: No Reported History Additional Family Medical History / Comment(s): Mother was healthy and at the age of 90 yrs. Father Family Medical History: Diabetes Mellitus Additional Family Medical History / Comment(s): Father in his mid 80's Medications and Allergies Home Medications Medication Instructions Recorded Confirmed Type Chlorthalidone [Hygroton] 25 mg PO DAILY 12/26/15 02/11/18 History Enalapril Maleate [Vasotec] 40 mg PO BID 12/26/15 02/11/18 History INSULIN LISPRO (humaLOG) [humaLOG] See Protocol SQ Q2H PRN 12/26/15 02/11/18 History Insulin Glargine,Hum.rec.anlog 37 unit SQ Q12H 12/26/15 02/11/18 History [Lantus Solostar Pen] Metoprolol Tartrate [Lopressor] 50 mg PO BID 12/26/15 02/11/18 History amLODIPine BESYLATE [Norvasc] 5 mg PO DAILY 12/26/15 02/11/18 History Cholecalciferol [Vitamin D3 (25 5,000 unit PO DAILY 10/01/17 02/11/18 History Mcg = 1000 Iu)] Ferrous Sulfate [Iron (65 MG 325 mg PO DAILY 10/01/17 02/11/18 History Elemental)] Glucosamine Sulfate 500 mg PO BID 10/01/17 02/11/18 History Ranitidine HCl 150 mg PO BID 10/01/17 02/11/18 History Vanadium 1 tab PO BID 10/01/17 02/11/18 History guaiFENesin [Mucinex] 600 mg PO BID PRN 10/01/17 02/11/18 History Aspirin 81 mg PO DAILY #30 chew 10/03/17 02/11/18 Rx Atorvastatin [Lipitor] 80 mg PO HS #30 tab 10/03/17 02/11/18 Rx Ezetimibe [Zetia] 10 mg PO DAILY #90 tab 10/03/17 02/11/18 Rx Nitroglycerin Sl Tabs [Nitrostat] 0.4 mg SUBLINGUAL Q5M PRN #25 tab 10/03/17 02/11/18 Rx Ticagrelor [Brilinta] 90 mg PO BID #60 tab 10/03/17 02/11/18 Rx Allergies Allergy/AdvReac Type Severity Reaction Status Date / Time morphine Allergy Severe Vomiting Verified 02/11/18 14:46 Surgical - Exam - General well developed, well nourished, no distress - Respiratory normal respiratory effort - Abdomen Abdomen: soft, non tender, no guarding, no rigid, no rebound - Genitourinary normal penis with no external lesions, testicles non-tender - Rectum Rectum: normal sphincter tone, no masses, other (Prostate moderately enlarged but smooth) - Psychiatric oriented to time, oriented to person, oriented to place, speech is normal, memory intact Assessment and Plan (1) Benign prostatic hyperplasia with lower urinary tract symptoms Status: Acute Code(s): N40.1 - BENIGN PROSTATIC HYPERPLASIA WITH LOWER URINARY TRACT SYMP SNOMED Code(s): 980266852 (2) Incomplete bladder emptying Status: Acute Code(s): R33.9 - RETENTION OF URINE, UNSPECIFIED SNOMED Code(s): 454967105 Plan: Cystoscopy, TURP. Potential risks were discussed, including anesthesia, bleeding, infection, retrograde ejaculation, incontinence, persistent incomplete bladder emptying, and vesical neck contracture. It is anticipated that he will be discharged home following the procedure, though it may be necessary to admit him postoperatively.
[2021-05-07 09:50] VITALS: BMI 42.8
[~2021-05-10 06:07] MED LIST changes: -DEXAMETHASONE SOD PHOSPHATE 10 MG/ML 1 ML VIAL IV ONE; -HYDROmorphone 0.5 MG/0.5 ML SYRINGE IVP PRN; -LACTATED RINGERS 1,000 ML IV SCH; -LIDOCAINE 1% 20 ML VIAL (10MG/ML) FOR IV START INTRADERMA PRN; -MIDAZOLAM 2 MG/2 ML VIAL IV PRN; -ONDANSETRON 4 MG/2 ML VIAL IVP ONE; -Pre Op ABX Message 1 EACH MISC MISCELLANE ONE; -SCOPOLAMINE 1.5MG/72HR PATCH TRANSDERM ONE; +ceFAZolin 3 GM in SODIUM CHLORIDE 0.9% 100 ML IVPB PRN
[2021-05-10] MEDS ORDERED: LACTATED RINGERS 1,000 ML IV SCH (06:10)
[2021-05-10] MEDS ORDERED: ONDANSETRON 4 MG/2 ML VIAL IVP ONE (06:10)
[2021-05-10] MEDS ORDERED: LIDOCAINE 1% (10MG/ML) FOR IV START INTRADERMA PRN (06:10)
[2021-05-10] MEDS ORDERED: .fentaNYL (PF) 50 MCG/ML AMP IV PRN (07:00)
[2021-05-10 07:16] LABS: Glucose,Whole Blood 238 mg/dL (75-99)
[2021-05-10] MEDS ORDERED: INSULIN ASPART (NovoLOG) 100 UNIT/ML VIAL SQ ONE (07:19)
[2021-05-10] MEDS ORDERED: ePHEDrine 50 MG/ML 1 ML AMP ONE (07:41)
[2021-05-10] MEDS ORDERED: PROPOFOL 10 MG/ML 20 ML VIAL IV ONE (07:41)
[2021-05-10] MEDS ORDERED: .fentaNYL (PF) 50 MCG/ML AMP ONE (07:41)
[2021-05-10] MEDS ORDERED: MIDAZOLAM 2 MG/2 ML VIAL ONE (07:41)
[2021-05-10] MEDS ORDERED: LIDOCAINE 1% INJ 10MG/ML (20 ML MDV) ONE (07:41)
[2021-05-10] MEDS ORDERED: FUROSEMIDE 10 MG/ML 2 ML VIAL ONE (07:41)
[2021-05-10] MEDS ORDERED: HYDROmorphone (PF) 1 MG/ML ONE (07:41)
[2021-05-10] MEDS ORDERED: SUCCINYLCHOLINE CHLORIDE VIAL 200 MG/10 ML VIAL IV ONE (07:41)
[2021-05-10] MEDS ORDERED: LACTATED RINGERS 1,000 ML IV ONE (08:43)
--- NOTE | 2021-05-10 10:30 | P.OP ---
Date of Procedure: 05/10/21 Preoperative Diagnosis: BPH with obstruction Postoperative Diagnosis: Same Procedure(s) Performed: Cystoscopy, bipolar transurethral resection of prostate (TURP) Anesthesia: JOSE Surgeon: Eliecer Reyna Estimated Blood Loss (ml): 100 IV fluids (ml): 1,600 Pathology: other (Prostate chips) Condition: stable Disposition: PACU Indications for Procedure: The patient is an 80-year-old white male who has previously undergone a transurethral resection of the prostate (TURP) on 2 occasions, in 2009 and 2010. He underwent a left tricep tendon repair on 01/01/2021 and developed postoperative urinary retention (1800 cc). He was placed in tamsulosin 0.8 mg daily but continues to empty his bladder incompletely. Cystoscopy reveals complete prostatic occlusion at the mid gland to apex region of the prostate. He was offered the options of continuing tamsulosin, adding finasteride, or undergoing a repeat TURP. He has chosen the latter. Operative Findings: Significant residual prostatic tissue, particularly at the mid apical region. Description of Procedure: The patient was taken in the operating room and placed in the dorsolithotomy position. The external genitalia was prepped and draped sterilely. The 25- Malagasy [employer] resectoscope sheath was introduced into the bladder under direct vision. The urethra appeared normal. The distal half of the prostate was visually occluded. The prostatic fossa was open at the level just distal to the vesical neck. The bladder was inspected. Both ureteral orifices were of normal anatomic location and configuration, and clear urine effluxed from both. No tumors or foreign bodies were seen. Using the bipolar cutting loop, the lateral lobes were resected down to the surgical capsule. The floor of the prostate was then resected, proximal to the verumontanum. Next, some anterior tissue was resected. The residual apical tissue was then carefully resected, with care taken to avoid injury to the external urinary sphincter. The resection was c arried down to the surgical capsule in all 4 quadrants. The prostatic fossa was then carefully examined, and any areas of bleeding were controlled with electrocautery. Excellent hemostasis was attained. The resectoscope was withdrawn into the bulbous urethra. The external urinary sphincter remained intact. The prostatic fossa was open. The [employer] evacuator was used to remove all prostate chips from the bladder. These were saved and sent for pathologic examination. The resectoscope was removed, and a 20 Malagasy Gómez catheter was placed. The return was essentially clear. The patient tolerated the procedure well was taken to the recovery room in stable condition.
[2021-05-10 10:36] VITALS: TEMP 96.8
[2021-05-10 10:41] LABS: Glucose,Whole Blood 200 mg/dL (75-99)
[2021-05-10 12:19] VITALS: BP 141/67; PULSE 60; RESP 16
== END 2021-05-10 12:57 | disposition home or self-care (01) ==
LOC: OR 06:07
PROVIDERS: ATTEND Urology
DX: N40.0 Benign prostatic hyperplasia without lower urinary tract symptoms (principal); I25.10 Atherosclerotic heart disease of native coronary artery without angina pectoris; M10.9 Gout, unspecified; K21.9 Gastro-esophageal reflux disease without esophagitis; E78.5 Hyperlipidemia, unspecified; I10 Essential (primary) hypertension; E10.9 Type 1 diabetes mellitus without complications; T14.90XS Injury, unspecified, sequela; Z85.89 Personal history of malignant neoplasm of other organs and systems; Z87.440 Personal history of urinary (tract) infections; Z79.4 Long term (current) use of insulin; Z79.899 Other long term (current) drug therapy; Z79.82 Long term (current) use of aspirin; Z88.5 Allergy status to narcotic agent
CPT/HCPCS: 88344; 88305; 52630; J2250; J0330; J1940; J0690; J2405; J2001; J3010; J1170; J2704